=== PATIENT | female | born 1970 | race Caucasian/White ===

== ENCOUNTER 2017-12-04 19:38 | Inpatient (IN) | payer MEDICAID ==
[~2017-12-04] VITALS: Ht 149.9 cm; Wt 73.1 kg
[2017-12-04 19:43] VITALS: Ht 149.9 cm; Wt 73.1 kg
[2017-12-04 20:41] LABS: BASOPHIL % 0.1 % (0-2); PLATELET COUNT 331 x10^3mcL (130-400); RED CELL DISTRIBUTION WIDTH 13.7 % (11.5-14.5)
[2017-12-04 20:50] LABS: CARBON DIOXIDE 28.2 mmol/L (21-32); CHLORIDE SERUM 97 mmol/L (98-107); CREATININE SERUM 0.8 mg/dL (0.6-1.0); GFR1 > 60 mL/min; GLUCOSE SERUM 110 mg/dL (74-106); POTASSIUM SERUM 3.8 mmol/L (3.5-5.1); SODIUM SERUM 133 mmol/L (136-145)
[2017-12-04 20:55] LABS: ALBUMIN 3.7 g/dL (3.4-5.0); ALKALINE PHOSPHATASE 69 U/L (46-116); ALT/SGPT 42 U/L (14-59); AMYLASE 47 U/L (25-115); AST/SGOT 22 U/L (15-37); BILIRUBIN TOTAL 0.6 mg/dL (0.20-1.00); LIPASE 94 IU/L (73-393)
[2017-12-05] MEDS ORDERED: SULFAMETHOXAZOL1 TA3 PO (00:33)
[2017-12-05] MEDS ORDERED: FLA500 PO (00:33)
[2017-12-05] MEDS ORDERED: TRAMADOL HCL50 MG PO (00:34)
[2017-12-05 00:54] LABS: microscopic required? YES; urine erythrocyte NEGATIVE (NEGATIVE)
[2017-12-05 03:04] VITALS: BP 116/69
[2017-12-05 05:15] VITALS: BP 105/64
[2017-12-05 07:57] LABS: ALKALINE PHOSPHATASE 63 U/L (46-116); ALT/SGPT 33 U/L (14-59); AST/SGOT 18 U/L (15-37); BILIRUBIN TOTAL 0.6 mg/dL (0.20-1.00); CALCIUM 8.3 mg/dL (8.5-10.1); CARBON DIOXIDE 24.6 mmol/L (21-32); CHLORIDE SERUM 102 mmol/L (98-107); CREATININE SERUM 0.7 mg/dL (0.6-1.0); GFR1 > 60 mL/min; GLUCOSE SERUM 115 mg/dL (74-106); POTASSIUM SERUM 4.1 mmol/L (3.5-5.1); SODIUM SERUM 138 mmol/L (136-145); TOTAL PROTEIN, SERUM 7.6 g/dL (6.4-8.2)
[2017-12-05 08:20] LABS: PLATELET COUNT 261 x10^3mcL (130-400); RED CELL DISTRIBUTION WIDTH 13.8 % (11.5-14.5)
[2017-12-05 08:22] LABS: BASOPHIL % 0 % (0-2)
[2017-12-05 08:45] VITALS: BP 114/69
[2017-12-05 16:23] VITALS: BP 107/72
[2017-12-05 17:55] VITALS: BP 107/72
== END 2017-12-05 19:45 | disposition home or self-care (01) | DRG 531 ==
LOC: ED 19:38 → MU 12-05 00:54
PROVIDERS: Emergency Medicine; Internal Medicine
DX: N70.03 Acute salpingitis and oophoritis (principal); K57.92 Diverticulitis of intestine, part unspecified, without perforation or abscess without bleeding; N73.9 Female pelvic inflammatory disease, unspecified; N83.291 Other ovarian cyst, right side; Z88.6 Allergy status to analgesic agent; Z88.1 Allergy status to other antibiotic agents
CPT/HCPCS: 87491; 87591; J0696; J1200; J1650; J1956; J2405; J2543; J3010; J3490; J7030; J7042